=== PATIENT | female | born 1960 | race African-American/Black ===

== ENCOUNTER 2022-07-13 12:31 | Emergency (ER) | payer MEDICARE, OTHER ==
[~2022-07-13] VITALS: Ht 160 cm; Wt 59.0 kg
--- NOTE | 2022-07-13 12:36 | NUR ---
TO ER CHAIR 1, TWISTED HER LEFT FOOT DURING A GLF "FEW DAYS AGO", AAOX3, BREATHING EVEN AND NON LABORED, AWAITING MD ORDERS
--- NOTE | 2022-07-13 15:50 | NUR ---
Patient discharged to home in stable condition. Written and verbal after care instructions given. Patient verbalizes understanding of instruction.
[2022-07-13 15:51] VITALS: BP 130/66
== END 2022-07-13 15:51 | disposition home or self-care (01) ==
LOC: ER 12:32
DX: S93.402A Sprain of unspecified ligament of left ankle, initial encounter (principal); I10 Essential (primary) hypertension; Z88.8 Allergy status to other drugs, medicaments and biological substances; Z60.2 Problems related to living alone; X50.1XXA Overexertion from prolonged static or awkward postures, initial encounter; Y93.89 Activity, other specified; Y92.89 Other specified places as the place of occurrence of the external cause; Y99.8 Other external cause status
CPT/HCPCS: 73590-TC; 73610-TC; 73630-TC